=== PATIENT | male | born 1955 | race Caucasian/White ===

== ENCOUNTER 2024-03-20 02:14 | Inpatient (IN) | payer BC, MEDICARE, SELFPAY ==
[2024-03-19 19:11] VITALS: BP 151/77
--- NOTE | 2024-03-19 19:22 | ED.GENMED ---
ED Provider Triage
<Obinna Arevalo Jr., PA-C - Last Filed: 03/19/24 19:22>
-
Patient seen by provider in Triage?: Seen in Triage
Attestation: A medical screening examination has been initiated by a qualified medical provider. Based on the assessment performed at this time, it has been determined that an emergent medical condition may exist and the patient has been informed
that further medical evaluation and possible additional diagnostic testing may be needed.
HPI: 68-year-old male presenting to the emergency department with right lower quad abdominal pain over the past 2 days gradually worsening with associated nausea. Reproducible tenderness to the right lower quadrant. Concern for potential
appendicitis. CT scan ordered for further assessment.
GENERAL: Alert , in no apparent distress
EYE: No visual abnormalities.
NECK: Trachea midline
ENT: No visible abnormalities.
LUNGS: No acute respiratory distress
NEUROLOGICAL: Alert and oriented
SKIN: Skin intact. No visible changes.
MUSCULOSKELETAL: Moving extremities normally
PSYCH: Normal and appropriate interaction.
This is a medical evaluation conducted in person to initiate diagnostic evaluation and provide initial therapeutics. Please see further documentation by the treating clinician.
History of Present Illness
<Obinna Arevalo Jr., PA-C - Last Filed: 03/19/24 19:22>
General
Chief Complaint: Abdominal Pain
Time Seen by Provider: 03/19/24 22:45
<LIBIA Varma - Last Filed: 03/19/24 23:41>
General
Source: patient
Exam Limitations: none
History of Present Illness
History of Present Illness:
This is a 68 year old male that comes in with c/o right lower abd pain. States that this started 2 days ago. States that he was nauseated today and has had a headache on and off. Denies any fever, chills, chest pain, SOB, vomiting, diarrhea,
dizziness, urinary burning.
Past History
<Obinna Arevalo Jr., PA-C - Last Filed: 03/19/24 19:22>
Past History
ED Past Medical History: None
ED Past Surgical History: None
Social History
Tobacco: Non-smoker
Alcohol: None
Drug: None
Personal:
Living: with family
<LIBIA Varma - Last Filed: 03/19/24 23:41>
Past History
ED Past Medical History: CAD, Cancer (Bladder cancer), HTN and NIDDM
ED Past Surgical History: Cardiac (Stent), Orthopedic (Right Meniscus repair) and Urological (Tumor removed from bladder)
Social History
Tobacco: Former smoker
Alcohol: Occasional
Review of Systems
<LIBIA Varma - Last Filed: 03/19/24 23:41>
Review of Systems
All Other Systems: ROS reviewed and negative except as documented in HPI and ROS
Constitutional: Reports no symptoms; Denies fever or chills
EENT: Reports no symptoms
Respiratory: Reports no symptoms; Denies cough or trouble breathing
Cardiac: Reports no symptoms; Denies chest pain
ABD/GI: Reports abdominal pain and nausea; Denies vomiting or diarrhea
: Reports no symptoms; Denies dysuria, frequency or urgency
Musculoskeletal: Reports no symptoms
Skin: Reports no symptoms
Neurological: Reports headache (on and off); Denies dizzy
Psychiatric: Reports no symptoms
Phy Exam
<LIBIA Varma - Last Filed: 03/19/24 23:41>
General Physical Exam
General Presentation: no apparent distress
General age: appears stated age
General Skin: warm and dry
General Habitus: elderly
General Mental: alert
General Hydration: appears well hydrated
ENT Exam
ENT Exam: TM's normal, pharynx normal and neck supple
Eye Exam
Eye Exam: EOMI
Cardiovascular Exam
Cardiovascular Exam: regular rate/rhythm, no edema and normal peripheral pulses
Pulmonary Exam
Pulmonary Exam: lungs clear, no respiratory distress, no rales, chest non tender, no crackles, no rhonchi, no wheezing and no cough
Gastrointestinal Exam
Gastrointestinal Exam: normal bowel sounds, soft, no organomegaly, no pulsatile mass, non distended and tender (Right sided abd tenderness with palpation)
Musculoskeletal Exam
Musculoskeletal Exam: full ROM and no edema
Skin Exam
Skin Exam: normal color, warm/dry, no rash and no petechia
Psychiatric Exam
Psychiatric Exam: normal mood/affect
Course
<Obinna Arevalo Jr., PA-C - Last Filed: 03/19/24 19:22>
Orders/Labs/Results
Orders:
Orders
03/19/24 19:21
CT Abd/Pel (IV only)-DH only Urgent
Comment:
Reason For Exam: rlq pain
03/19/24 19:22
Ketorolac [Toradol] 15 mg IV NOW STA
Ondansetron Injectable [Zofran] 4 mg IV NOW STA
03/19/24 19:27
Complete Blood Count/With Diff Urgent
Comprehensive Metabolic Panel Urgent
Lipase Urgent
03/19/24 23:28
Piperacillin/Tazo 3.375 Gram [Zosyn] 3.375 gram in 50 ml IV NOW
Abnormal Lab Results
03/19/24
19:27
WBC 12.5 H 10^3/uL
(4.8-10.8)
MCH 26.9 L pg
(27.0-31.0)
MPV 11.1 H fL
(7.4-10.4)
Abs Immat Gran (auto) 0.1 H 10^3/uL
(0-0.05)
Absolute Neuts (auto) 9.3 H 10^3/uL
(1.4-6.5)
Absolute Monos (auto) 1.1 H 10^3/uL
(0.1-0.6)
Lymphocytes % 15.0 L %
(20.5-51.1)
Chloride 96 L mmol/L
(98-107)
Creatinine 1.5 H mg/dL
(0.7-1.3)
Glucose 144 H mg/dl
(70-99)
03/19/24 19:27
03/19/24 19:27
Vital Signs
Initial and Last Documented VS:
Initial Vital Signs
Temp Pulse Resp BP Pulse Ox
98.6 F 84 16 151/77 98
03/19/24 19:11 03/19/24 19:11 03/19/24 19:11 03/19/24 19:11 03/19/24 19:11
Last Documented Vital Signs
Temp Pulse Resp BP Pulse Ox
98.6 F 84 16 121/68 96
03/19/24 19:11 03/19/24 19:11 03/19/24 19:11 03/19/24 23:00 03/19/24 23:15
<LIBIA Varma - Last Filed: 03/19/24 23:41>
Orders/Labs/Results
Orders:
Orders
03/19/24 19:21
CT Abd/Pel (IV only)-[facility] only Urgent
Comment:
Reason For Exam: rlq pain
03/19/24 19:22
Ketorolac [Toradol] 15 mg IV NOW STA
Ondansetron Injectable [Zofran] 4 mg IV NOW STA
03/19/24 19:27
Complete Blood Count/With Diff Urgent
Comprehensive Metabolic Panel Urgent
Lipase Urgent
03/19/24 23:28
Piperacillin/Tazo 3.375 Gram [Zosyn] 3.375 gram in 50 ml IV NOW
Abnormal Lab Results
03/19/24
19:27
WBC 12.5 H 10^3/uL
(4.8-10.8)
MCH 26.9 L pg
(27.0-31.0)
MPV 11.1 H fL
(7.4-10.4)
Abs Immat Gran (auto) 0.1 H 10^3/uL
(0-0.05)
Absolute Neuts (auto) 9.3 H 10^3/uL
(1.4-6.5)
Absolute Monos (auto) 1.1 H 10^3/uL
(0.1-0.6)
Lymphocytes % 15.0 L %
(20.5-51.1)
Chloride 96 L mmol/L
(98-107)
Creatinine 1.5 H mg/dL
(0.7-1.3)
Glucose 144 H mg/dl
(70-99)
03/19/24 19:27
03/19/24 19:27
Leukocytosis, Chloride slightly low. Cr elevated. Hyperglycemia. Lipase normal at 230
Vital Signs
Initial and Last Documented VS:
Initial Vital Signs
Temp Pulse Resp BP Pulse Ox
98.6 F 84 16 151/77 98
03/19/24 19:11 03/19/24 19:11 03/19/24 19:11 03/19/24 19:11 03/19/24 19:11
Last Documented Vital Signs
Temp Pulse Resp BP Pulse Ox
98.6 F 84 16 121/68 96
03/19/24 19:11 03/19/24 19:11 03/19/24 19:11 03/19/24 23:00 03/19/24 23:15
Deepaklt;LIBIA Varma - Last Filed: 03/19/24 23:41>
MDM/Problems Addressed
Differential Diagnosis Includes:
Appendicitis, Renal calculus
MDM/Problems Addressed:
This is a 68 year old male that comes in with c/o right lower abd pain. States that this started 2 days ago.
Will check labs and get CT scan.
Into see patient. Explained that he has an appendicitis. Will notify surgery to see if they will take patient or have patient go to hospitalist with them on Consult. Await his response.
Dr. Remy would like the hospitalist to admit. Hospitalist notified.
Chronic conditions affecting care: DM, CAD and Cancer
Acute Exacerbation and/or Progression of Chronic Illness:
NA
<LIBIA Varma - Last Filed: 03/19/24 23:41>
*Radiology
Radiology exam reviewed: radiology read reviewed (CT- There is a dilated appendix with surrounding inflammatory changes consistent with acute appendicitis. There is a 7mm hyperdensity in the distal appendix, possible appendicolith. Colonic
diverticulosis. )
*Pulse Oximetry
Patient hypoxic: no
*EKG
Interpreted by ED Provider?: NA
Rate: EKG- N/A
*Architectural Engineering Teacher Interpretation
Rate: Architectural Engineering Teacher- N/A
*Critical Care Note
Total Time (30-74mins, 75-104mins- exclusive of procedures): Not Applicable
ED Attending Note
<Obinna Arevalo Jr., PA-C - Last Filed: 03/19/24 19:22>
-
Portions of this chart may have been created with voice recognition software.� Occasional wrong word or��sound alike� substitutions may have occurred due to the inherent limitations of voice recognition software.
Discharge Plan
Departure
Patient Disposition: Admit
Date of Disposition: 03/19/24
Time of Disposition: 23:40
Admit to: Med/Surg
Presentation/result/management discussed w/ accepting MD/DO: Hospitalist
Patient with high blood pressure during this ER visit?: No
Covid-19: Not Applicable
Discharge Problem:
Acute appendicitis
Referrals:
Harleen Avila MD [Family Provider] -
Interventions
Interventions:
*Risk Screen - Suicide Last Done: 03/19/24 23:20
*General Assessment Last Done: 03/19/24 23:19
*Neglect/Abuse Screening Last Done: 03/19/24 23:20
ED- Fall Risk Assessment Last Done: 03/19/24 23:22
*ED COVID-19 Vaccine History Last Done: 03/19/24 23:21
PZ-Kbqcmx-Uifahhuhvz Assessment Last Done: 03/19/24 22:41
Discharge Date and Time
Print Language: SWEDISH
[2024-03-19] MEDS: ZOFRAN 4 MG IV (19:30)
[2024-03-19] MEDS: TORADOL 15 MG IV (19:30)
[2024-03-19 19:32] LABS: % Basophils 0.2 % (0-2); % Immature Granulocytes 0.5 % (0-0.5); % Neutrophils 74.3 % (42.2-75.2); Absolute Eosinophils 0.1 10^3/uL (0-0.7); Absolute Immature Granulocytes 0.1 10^3/uL (0-0.05); Absolute Lymphocytes 1.9 10^3/uL (1.2-3.4); Absolute Monocytes 1.1 10^3/uL (0.1-0.6); Absolute Neutrophils 9.3 10^3/uL (1.4-6.5); Hematocrit 40.4 % (39.0-52.0); Hemoglobin 13.6 g/dL (13.0-18.0); Mean Corp Hgb Conc. 33.7 g/dL (33.0-37.0); Mean Corpuscular Hgb 26.9 pg (27.0-31.0); Mean Platelet Volume 11.1 fL (7.4-10.4); Nucleated Red Blood Cells % 0 % (-); Platelet Count 198 10^3/uL (130-400); Red Blood Cell Count 5.05 10^6/uL (4.70-6.10); Red Cell Dist. Width 14.1 % (11.5-14.5); White Blood Cell Count 12.5 10^3/uL (4.8-10.8)
[2024-03-19 19:50] LABS: ALT (SGPT) 18 U/L (0-50); AST (SGOT) 18 U/L (17-59); Albumin 4.6 g/dl (3.5-5.0); Alkaline Phosphatase 53 U/L (38-126); Blood Urea Nitrogen 20 mg/dl (9-20); Calcium 9.7 mg/dl (8.4-10.2); Carbon Dioxide 29 mmol/L (22-30); Chloride 96 mmol/L (98-107); Glucose 144 mg/dl (70-99); Lipase 230 U/L (23-300); Potassium 4.1 mmol/L (3.5-5.1); Sodium 135 mmol/L (135-145); Total Bilirubin 0.5 mg/dl (0.2-1.3); Total Protein 7.3 g/dl (6.3-8.2); eGFR 49.77
[2024-03-19 22:40] VITALS: BP 109/86
[2024-03-19 23:00] VITALS: BP 121/68
[2024-03-19] MEDS: ZOSYN 50 IV (23:47)
[2024-03-20] VITALS (18 sets, daily range): BP systolic 105–138; BP diastolic 61–72; BMI 36.0
--- NOTE | 2024-03-20 01:21 | HPS.HSE ---
Family Physician
-
Family Physician: Harleen Avila
Chief Complaint
-
Abd Pain
History of Present Illness
Patient is a 68y M with PMH significant for ASCVD and DM-II who presents to ED complaining of right-sided abdominal pain. Patient states that he first noted R sided abdominal pain 2 days ago. Pain has steadily increased in severity since that
time. Today he felt nauseated, but had no emesis. He presented to the ED for further evaluation and treatment. Patient denies and fevers / chills. No diarrhea or bloody stools.
Medical History
Past Medical History
Past Medical History: Reports Other
Additional Past Medical History:
ASCVD
Hypertension
DM-II
Obesity
Nephrolithiasis
Past Surgical History: Reports Other
Additional Past Surgical History:
PTCA with Stent x 4
T&A
Social History
Tobacco: Former Smoker (Quit smoking 50 years ago.)
Alcohol: Occasional
Drug: None
Family History
Family History: Not pertinent
Allergies / Home Medications
Allergies reflects when Allergies were last updated in [employer].
Home Medications with original date entered in [employer]
Allergy/Medication List:
Allergies
Allergy/AdvReac Type Severity Reaction Status Date / Time
No Known Allergies Allergy Verified 03/19/24 19:16
Home Medications
amlodipine 5 mg tablet 5 mg PO DAILY 03/19/24
aspirin 81 mg chewable tablet 81 mg PO DAILY 03/19/24
hydrochlorothiazide 12.5 mg tablet 12.5 mg PO DAILY 03/19/24
lisinopril 20 mg tablet 20 mg PO DAILY 03/19/24
metformin 500 mg tablet 500 mg PO BID 03/19/24
metoprolol succinate 50 mg tablet,extended release 24 hr 50 mg PO DAILY 03/19/24
nitroglycerin 0.4 mg sublingual tablet 0.4 mg sublingual [id number] PRN chest pain 03/19/24
rosuvastatin 40 mg tablet 40 mg PO DAILY 03/19/24
semaglutide 7 mg tablet (Rybelsus) 7 mg PO DAILY 03/19/24
Review of Systems
-
History Source: Patient
A 12 point ROS was completed and negative except as noted: Yes
Constitutional: Denies Fever or Chills
Respiratory: Denies Cough or Trouble Breathing
Cardiac: Denies Chest Pain or Palpitations
Abdomen/GI: Reports Abdominal Pain and Nausea; Denies Vomiting, Diarrhea or Bloody Stools
: Denies Dysuria or Frequency
Musculoskeletal: Denies Joint Pain or Edema
Neurological: Denies Dizzy or Headache
Physical Exam
Vital Signs
Vital Signs
Temp Pulse Resp BP Pulse Ox
98.6 F 84 16 121/68 96
03/19/24 19:11 03/19/24 19:11 03/19/24 19:11 03/19/24 23:00 03/19/24 23:15
Physical Exam
General: Other (68y M in no acute distress.)
HEENT: Moist mucous membranes, PERRLA and Other (Thick neck.)
Respiratory: Clear; No Wheezes, Rales or Rhonchi
Cardiac: S1/S2 and Regular Rhythm; No Murmur
GI: Soft, Non Distended, Normal Bowel Sounds and Other (Pos tenderness RLQ with guarding.)
Musculoskeletal: No Clubbing, No Cyanosis and No Edema
Neuro: AO x 3
Laboratory Results
-
03/19/24 19:27
03/19/24 19:27
Laboratory Results
Total Bilirubin 0.5 mg/dl (0.2-1.3) 03/19/24 19:27
AST 18 U/L (17-59) 03/19/24 19:27
ALT 18 U/L (0-50) 03/19/24 19:27
Alkaline Phosphatase 53 U/L (38-126) 03/19/24 19:27
Lipase 230 U/L (23-300) 03/19/24 19:27
Impression/Plan
-
A/P: Patient is a 68y M with PMH significant for ASCVD and DM-II who presents to ED complaining of abdominal pain.
Acute Appendicitis
- Admit for further evaluation and treatment.
- Continue IV abx for now.
- Consult Surgery for definitive treatment.
ASCVD
- Stable. No current chest pain / dyspnea / etc.
- Continue ASA uninterrupted given presence of coronary stents.
- Continue metoprolol with holding parameters.
Benign Hypertension
- Stable. Continue metoprolol and amlodipine with holding parameters.
- Hold other BP meds acutely / jyoti-operatively.
DM-II
- Stable. Hold PO medications acutely.
- Follow glucose and cover with SSI as needed.
- Update A1C.
Obesity due to excess calories
- Affects all aspects of care.
- Encourage healthy diet and increased exercise with goal of weight loss.
DVT Prophylaxis: SCDs
Code Status: Full
[2024-03-20] MEDS: LR 1000 IV ×2 (02:44→17:10)
[2024-03-20] MEDS: DILAUDID 0.5 MG IV ×2 (02:44→19:35)
[2024-03-20] MEDS: ZOSYN 50 IV ×3 (06:07→17:57)
[2024-03-20 06:38] LABS: Hematocrit 36.4 % (39.0-52.0); Mean Corpuscular Hgb 27.1 pg (27.0-31.0); Mean Corpuscular Volume 82.4 fL (80.0-94.0); Mean Platelet Volume 10.5 fL (7.4-10.4); Platelet Count 148 10^3/uL (130-400); Red Blood Cell Count 4.42 10^6/uL (4.70-6.10); Red Cell Dist. Width 14.4 % (11.5-14.5); White Blood Cell Count 9.7 10^3/uL (4.8-10.8)
[2024-03-20 06:40] LABS: Blood Urea Nitrogen 27 mg/dl (9-20); Calcium 9.1 mg/dl (8.4-10.2); Carbon Dioxide 25 mmol/L (22-30); Chloride 98 mmol/L (98-107); Estimated Creatinine Clearance 48 ml/min; Glucose 139 mg/dl (70-99); Potassium 3.9 mmol/L (3.5-5.1); Sodium 136 mmol/L (135-145); eGFR 46.06
--- NOTE | 2024-03-20 07:55 | W.SUR.PREOP ---
Pre-Operative Surgical Note
-
I have examined this patient prior to the performance of the scheduled procedure.
The patient's condition is unchanged from the time of the current History and
Physical and the patient is able to undergo the scheduled procedure.
[2024-03-20] MEDS: NOVOLOG FLEXPEN-LOW RESISTANCE SC ×3 (08:38→17:41)
[2024-03-20] MEDS: LOW STRENGTH ASPIRIN 81 MG PO (08:47)
[2024-03-20] MEDS: CRESTOR 40 MG PO (08:47)
[2024-03-20] MEDS: NORVASC 5 MG PO (08:47)
[2024-03-20] MEDS: TOPROL XL 50 MG PO (08:47)
[2024-03-20] MEDS: PROTONIX IV 40 MG IV (08:48)
[2024-03-20 09:04] LABS: Glucose - Point of Care 136 mg/dl (70-99)
--- NOTE | 2024-03-20 10:07 | CON.GS ---
Addendum entered and electronically signed by Familia Remy MD 03/20/24 11:19:
I saw and examined the patient independently.
The Application Coordinator's note was reviewed and I agree with the note, assessment and plan except where noted below.
Comment: This is a 68-year-old male with history of CAD status post 4 stents on ASA 81, diabetes who presents with a 3-day history of right lower quadrant abdominal pain found to have acute appendicitis.
Will plan for a laparoscopic appendectomy in the OR today.
N.p.o., IV fluids, IV antibiotics
Risks/Benefits/Alternatives, expected postoperative course and possible complications (bleeding, infection, injury to surrounding structures, acute/chronic pain) discussed at length. Patient wishes to proceed with surgery. All questions answered.
Consent obtained.
I spent 60 minutes in total for the care of this patient today including direct patient care and counseling, reviewing labs, imaging, coordination of care, as well as documentation.
Original Note:
Consultation
-
Date/Time Consultation Requested: 03/19/24 7421
Requesting Provider: Osiel
Medical History
-
Chief Complaint: abdominal pain
History of Present Illness:
Mr. To is a 68 yo male with a h/o CAD s/p 4 stents on daily ASA, NIDDM and prior T&A who presents through the Ed with 3 days of abdominal pain localizing to the RLQ. His pain has steadily increased causing him to present for evaluation. He
denies fevers, chills, or diarrhea. He has had nausea but no vomiting. On exam, he is quite tender to the RLQ with light palpation.
Past Medical History
Past Medical History: CAD, HTN, Hypercholesterolemia, NIDDM and Other (nephrolithiasis, obesity)
Past Surgical History: Cardiac (stents x4) and Tonsilectomy
Social History
Tobacco: Former Smoker (quit >50 years ago)
Alcohol: Occasional
Drug: None
Living: With Family
Family History
Family History: Reviewed & Not Pertinent
Allergies / Home Medications
Allergy/AdvReac Type Severity Reaction Status Date / Time
No Known Allergies Allergy Verified 03/19/24 19:16
�Medication �Instructions �Recorded �Confirmed �Type
amlodipine 5 mg tablet 5 mg PO DAILY 03/19/24 03/19/24 History
aspirin 81 mg chewable tablet 81 mg PO DAILY 03/19/24 03/19/24 History
hydrochlorothiazide 12.5 mg tablet 12.5 mg PO DAILY 03/19/24 03/19/24 History
lisinopril 20 mg tablet 20 mg PO DAILY 03/19/24 03/19/24 History
metformin 500 mg tablet 500 mg PO BID 03/19/24 03/19/24 History
metoprolol succinate 50 mg 50 mg PO DAILY 03/19/24 03/19/24 History
tablet,extended release 24 hr
nitroglycerin 0.4 mg sublingual 0.4 mg sublingual [id number] PRN 03/19/24 03/19/24 History
tablet chest pain
rosuvastatin 40 mg tablet 40 mg PO DAILY 03/19/24 03/19/24 History
semaglutide 7 mg tablet (Rybelsus) 7 mg PO DAILY 03/19/24 03/19/24 History
Review of Systems
-
History Source: Patient
All other systems: Negative unless noted
A 10 point review of systems was completed, and was negative except as per HPI.
Physical Exam
Vital Signs
Temp Pulse Resp BP Pulse Ox
98.4 F 71 14 113/65 99
03/20/24 08:10 03/20/24 08:47 03/20/24 08:10 03/20/24 08:47 03/20/24 08:10
03/19/24 03/20/24 03/21/24
06:59 06:59 06:59
Actual Weight 101.1 kg
Body Mass Index (BMI) 36.0
Lab Results
03/20/24 06:12
03/20/24 06:12
WBC 9.7 10^3/uL (4.8-10.8) 03/20/24 06:12
Hgb 12.0 g/dL (13.0-18.0) L 03/20/24 06:12
Hct 36.4 % (39.0-52.0) L 03/20/24 06:12
Plt Count 148 10^3/uL (130-400) D 03/20/24 06:12
Abs Immat Gran (auto) 0.1 10^3/uL (0-0.05) H 03/19/24 19:27
Neutrophils % 74.3 % (42.2-75.2) 03/19/24 19:27
Physical Exam
General: Well Developed and Well Nourished
HEENT: Moist Mucous Membranes
GI: Soft, Non Distended, Tender (RLQ) and Obese
Skin: Warm and Dry
Neuro: Awake, Alert and AO x 3
Psych: Calm
Assessment / Plan
-
68 yo male with h/o CAD, HTN and NIDDM presenting with RLQ pain x3 days with tenderness on exam. CT imaging and exam consistent with acute appendicitis with appendicolith. Leukocytosis present on admission but now resolved with ABX. Cr elevated,
medicine following on IVF. Afebrile with stable vital signs.
Would recommend surgical intervention with laparoscopic appendectomy, patient agreeable to proceed
--NPO for OR later today
--Continue Iv Zosyn
--IVF as per primary team
--Analgesics/antiemetics prn
--- NOTE | 2024-03-20 10:23 | PTCARENOTE ---
pt aox3. states 2/10 pain in lower right abd. does not want pain med. room air breath sounds clear. ivf running as ordered.
[2024-03-20 12:14] LABS: Glucose - Point of Care 119 mg/dl (70-99)
[2024-03-20 14:27] LABS: Glucose - Point of Care 156 mg/dl (70-99)
--- NOTE | 2024-03-20 15:03 | W.IMMPOSTOP ---
Surgical Immed Post Op Note
-
Primary Surgeon: Familia Remy MD
Assisting Surgeon: None
Pre-op Diagnosis: Acute appendicitis
Post-op Diagnosis: Same
Procedure Performed: Laparoscopic appendectomy
Anesthesia Type: General
Specimen / Cultures: Appendix
Estimated Blood Loss: 11 cc
Complications: None
Operative Findings: Three 5 mm port appendectomy. Veress needle entry. Base of the appendix was plastered into the sidewall of the cecum and mesentery but thin and uninvolved. This was ligated with 0 PDS Endoloop followed by a 0 silk tie. The
base of the mesentery that was bleeding was cauterized with the LigaSure. Floseal was also used to assist with hemostasis.
POST OP PLAN:
Imaging: None
Labs: Routine AM
Diet: Advance to Regular as tolerated
Analgesia: Tylenol 650mg q6 Bernardo, Yaneli 5mg q6 PRN, Dilaudid 0.5mg q2h PRN
Neuro/vascular checks: q4h
AC/AP: Hold Therapeutic AC, Ok for DVT PPx
Activity: Ad Melanie
Wound/Incisions/Drains: Routine
Abx: can continue while admitted
Dispo: RNF, anticipate discharge home tomorrow
[2024-03-20] MEDS: DILAUDID 0.25 MG IV (15:21)
--- NOTE | 2024-03-20 16:17 | OR.RPT ---
Operative Report
Operative Report
Patient Name: Walt To
: 1955
Date of Operation: 03/20/2024
Preoperative Diagnosis: Acute Appendicitis
Postoperative Diagnosis: Same
Procedure(s):
Laparoscopic Appendectomy
Surgeon(s):
Dr. Remy
[place]way Man(s):
None
Anesthesia: General
Estimated Blood Loss: 11 cc
Urine Output: None
Drains/Lines/Implants: None
Specimens:
1. Appendix
HPI/Surgical Indications:
This is a 68-year-old male who presents with a 3 day history of abdominal pain. Exam, labs and imaging are consistent with acute appendicitis. Risks/Benefits/Alternatives were discussed at length, and the patient agreed to proceed with surgery.
Operative Findings: Three 5 mm port appendectomy. Veress needle entry. Base of the appendix was plastered into the sidewall of the cecum and mesentery but thin and uninvolved. Inflamed but not perforated. This was ligated with 0 PDS Endoloop
followed by a 0 silk tie. The base of the mesentery that was bleeding was cauterized with the LigaSure. Floseal was also used to assist with hemostasis.
Procedure Description:
The patient was placed in the supine position, with the left arm tucked, and general anesthesia was induced. The abdomen was prepared and draped in a sterile fashion so as to expose the entire abdomen. A surgical time out was taken. Abdominal access
was obtained with aleft subcostal Veress technique followed by a 5 mm left lower quadrant Optiview trocar entry. After confirming no injury on entrance, two additional 5mm ports were placed in the suprapubic area just off midline and in the right
upper quadrant. The patient was placed in Trendelenberg with the right slightly up . The appendix was identified and a window was created in the mesoappendix. The appendix was suppurative and inflamed but not perforated. The base of the appendix
appeared plastered over the cecum and had to be carefully dissected off. Using a laparoscopic bipolar energy device, the meso appendix was divided. There was some bleeding from the mesentery in this area which we cauterized using the laparoscopic
bipolar device. The true base of the appendix appeared uninvolved and was ligated/divided using a 0-PDS Endoloops, followed by an 0 silk tie (we were out of additional Endoloops) followed by the energy device. The appendix was placed in a specimen
retrieval bag. There is still a little bit of oozing at the base of the mesentery so Floseal was used. Hemostasis was confirmed and the ports were removed under visualization. The specimen was passed off the field. The GONZÁLEZ-umbilical port was
closed with a [id number] 0-PDS and the skin for all three ports was closed with interrupted monocryls and covered with dermabond. The patient was awoken from anesthesia in good condition and transported to the recovery area.
I was the attending physician and performed the procedure with no assistance. I was present for all portions of the case excluding skin closure.
Familia Remy MD
[2024-03-20] MEDS: TYLENOL 650 MG PO (17:10)
[2024-03-20 17:31] LABS: Glucose - Point of Care 143 mg/dl (70-99)
[2024-03-20 21:51] LABS: Glucose - Point of Care 225 mg/dl (70-99)
[2024-03-21] MEDS: ZOSYN 50 IV ×2 (01:06→06:25)
[2024-03-21 03:00] VITALS: BP 132/71
[2024-03-21] MEDS: LR 1000 IV (03:44)
[2024-03-21] MEDS: DILAUDID 0.5 MG IV (03:47)
[2024-03-21 07:07] VITALS: BP 132/75
[2024-03-21 07:25] LABS: Hematocrit 35.1 % (39.0-52.0); Mean Corp Hgb Conc. 34.2 g/dL (33.0-37.0); Mean Corpuscular Hgb 27.1 pg (27.0-31.0); Mean Corpuscular Volume 79.2 fL (80.0-94.0); Mean Platelet Volume 11.4 fL (7.4-10.4); Platelet Count 187 10^3/uL (130-400); Red Blood Cell Count 4.43 10^6/uL (4.70-6.10); Red Cell Dist. Width 13.8 % (11.5-14.5); White Blood Cell Count 9.3 10^3/uL (4.8-10.8)
--- NOTE | 2024-03-21 07:37 | W.PN.HOSP.TC ---
Addendum entered and electronically signed by Jin Sellers MD 03/21/24 11:57:
Total time spent on d/c = 31 min. This included today's physical exam, progress note, review of laboratory and diagnostic data, preparation of discharge documents and prescriptions, and discussions about the pt's hospital course and discharge plan
with the patient and other certified medical transcriptionist involved in the patient's care.
Original Note:
Today's Communication/Plan
-
d/c
Assessment / Plan
Assessment / Plan
Gen: NAD, AAOx3.
Eyes: EOMI, PERRLA, no scleral icterus.
Neck: supple.
CV: RRR, +S1/S2, no m/r/g.
Resp: CTAB, no rales, wheezes, or rhonchi.
Abd: +BS, soft, mild RLQ TTP, ND
Skin: No rashes.
Neuro: CN 2-12 intact, non-focal.
Psych: Normal mood and affect.
CT A/P: Dilated appendix with surrounding inflammatory changes consistent with acute appendicitis. There is a 7 mm hyperdensity in the distal appendix, possible appendicolith. Colonic diverticulosis.
Acute appendicitis:
-Status post laparoscopic appendectomy on 03/20/24
-management as per surgery
-currently on Zosyn, likely does not need abx on d/c
Other problems:
CAD: cont ASA/BB/statin
Essential hypertension: Cont BB/Norvasc
DM2: a1c 7.0%, SSI/accuchecks
Obesity due to excess calories
CKD3a (suspected, baseline Cr unknown)
FULL/SCDs
Medically cleared for d/c if OK with surgery.
Anticipated Discharge: Today
Subjective/Interval History
-
Date of Service: March 21, 2024
Mild abdominal pain. Tolerating diet. No other acute complaints.
Objective Data
-
Labs:
Laboratory Results
03/21/24
06:45
WBC 9.3
Hgb 12.0 L
Hct 35.1 L
Plt Count 187 D
Sodium Pending
Potassium Pending
Chloride Pending
Carbon Dioxide Pending
BUN Pending
Creatinine Pending
Glucose Pending
Calcium Pending
Vital Signs:
Vital Signs
Temp Pulse Resp BP Pulse Ox
98.6 F 86 18 132/71 94
03/21/24 03:00 03/21/24 03:00 03/21/24 03:00 03/21/24 03:00 03/21/24 03:00
I&O
03/20/24 03/21/24 03/22/24
06:59 06:59 06:59
Intake Total 2250 / 2250
Output Total 1350 / 1350
Balance 900 / 900
[2024-03-21 07:48] LABS: Glucose - Point of Care 183 mg/dl (70-99)
[2024-03-21 07:50] LABS: Blood Urea Nitrogen 23 mg/dl (9-20); Carbon Dioxide 24 mmol/L (22-30); Chloride 99 mmol/L (98-107); Estimated Creatinine Clearance 51 ml/min; Glucose 188 mg/dl (70-99); Sodium 136 mmol/L (135-145); eGFR 49.77
[2024-03-21] MEDS: CRESTOR 40 MG PO (07:51)
[2024-03-21] MEDS: NORVASC 5 MG PO (07:51)
[2024-03-21] MEDS: TOPROL XL 50 MG PO (07:51)
[2024-03-21] MEDS: PROTONIX IV 40 MG IV (07:51)
[2024-03-21] MEDS: LOW STRENGTH ASPIRIN 81 MG PO (07:51)
[2024-03-21] MEDS: TYLENOL 650 MG PO (08:03)
[2024-03-21] MEDS: NOVOLOG FLEXPEN-LOW RESISTANCE 1 UNITS SC (09:23)
--- NOTE | 2024-03-21 10:10 | PTCARENOTE ---
pt aaox3. states 07/31 abd pain. tylenol given. three inc site on abd c/d/i. 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 ivf running as ordered. pt oob to bathroom.
--- NOTE | 2024-03-21 10:11 | CM ---
CM reviewed medical records. Plan for discharge today. No needs noted at this time. CM will continue to follow as needed.
PLAN: home no needs.
--- NOTE | 2024-03-21 10:57 | W.PN.GS2 ---
Today's Communication / Plan
-
Dispo planning
Assessment / Plan
-
68 yo male presenting with acute appendicitis now POD #1 lap appi
H/H stable
Labs stable
AFVSS
Doing well post operatively and following expected course
--Continue diet as tolerated
--Analgesics prn
--Ok for discharge from surgical standpoint
Subjective Data
-
Date of Service: March 21, 2024
Patient seen and examined at bedside with Dr. Philip. Rico n/v. Tolerating diet. Incisional pain is minimal. Passing flatus.
Objective Data
-
Intake and Output
03/20/24 03/21/24 03/22/24
06:59 06:59 06:59
Intake Total 2250 / 2250
Output Total 1350 / 1350
Balance 900 / 900
Intake:
IV fluids (Total) 2049 / 2049
normosol 150 / 150
IV piggybacks 200 / 200
Output:
Urine, Voided 1350 / 1350
Other:
Number of approximated MODERATE 1
amounts of urine
Vital Signs
Temp Pulse Resp BP Pulse Ox
98.0 F 79 16 132/75 96
03/21/24 07:07 03/21/24 07:51 03/21/24 07:07 03/21/24 07:51 03/21/24 07:07
Lab Results
03/21/24 06:45
03/21/24 06:45
Calcium 9.0 mg/dl (8.4-10.2) 03/21/24 06:45
Total Bilirubin 0.5 mg/dl (0.2-1.3) 03/19/24 19:27
AST 18 U/L (17-59) 03/19/24 19:27
ALT 18 U/L (0-50) 03/19/24 19:27
Alkaline Phosphatase 53 U/L (38-126) 03/19/24 19:
Total Protein 7.3 g/dl (6.3-8.2) 03/19/24 19:
Albumin 4.6 g/dl (3.5-5.0) 03/19/24 19:
Physical Exam
-
NAD
ABD soft, incisional tenderness, nd
[2024-03-21 11:32] VITALS: BP 146/74
[2024-03-21 12:10] LABS: Glucose - Point of Care 193 mg/dl (70-99)
--- NOTE | 2024-03-21 14:05 | W.DCSUMMARY ---
Discharge Summary
Discharge Data
Date of Admission: 03/20/24
Date of Discharge: 03/21/24
-
Pending Results: No
Hospital Course
Primary diagnoses:
Appendicitis status post laparoscopic appendectomy
Secondary diagnoses:
Coronary artery disease
Essential hypertension
Type 2 diabetes mellitus
Obesity due to excess calories
Chronic kidney disease 3a (suspected, baseline Cr unknown)
Consults:
General Surgery
Imaging:
CT A/P: Dilated appendix with surrounding inflammatory changes consistent with acute appendicitis. There is a 7 mm hyperdensity in the distal appendix, possible appendicolith. Colonic diverticulosis.
Hospital course: 68-year-old male was admitted yesterday with a chief complaint of abdominal pain as outlined in the H&P done on admission. He was found of acute appendicitis. He underwent laparoscopic appendectomy on 03/20/24 and tolerated the
procedure well. He was on Zosyn before surgery and did not require antibiotics on discharge as per discussion with general surgery. He was discharged in medically stable condition
Discharge Plan
-
Patient Disposition: Home (Routine Discharge)
Discharge Diagnosis/Procedures: Appendicitis status post laparoscopic appendectomy
Condition: Good
Diet: As tolerated, Low Cholesterol, Low Sodium and Diabetic, Carb Controlled
Activity: No strenuous activity
Driving Restrictions: Not until seen by your Dr
Bathing Restrictions: OK to Shower
Blood Work: BMP and CBC in 1 week, prescription from PCP
Activity Restrictions/Additional Instructions:
Instructions following Laparoscopic appendectomy
Please call [phone] if you have any questions or concerns after your surgery.
Wound Care:
Your incisions are covered with skin glue which will come off on its own in 5-10 days.
It is ok to shower the day after your surgery. Do not scrub the incisions, let soap and water wash over them and pat dry.
� Bruising around your incisions is normal.
� Using ice packs will help minimize this swelling.
� No swimming or soaking incisions for 1 week.
� Your stitches will dissolve and do not need to be removed.
Urinary retention:
If you are unable to urinate 6-8 hours after your surgery, please call [phone] to discuss further management.
Activity:
No heavy lifting more than 15 pounds for the next 3 weeks, then you may gradually lift heavier objects as tolerated by discomfort. Otherwise activity as tolerated by your comfort level.
Pain Management:
Use Tylenol, ibuprofen and ice packs to treat your pain.
� You may take 650 milligrams of Tylenol (Max 3 grams per day) every 6 hours, and 600 mg of ibuprofen also every 6 hours. (you can alternate them every 3 hours)
� You may use an ice pack to your incision as needed.
� If you still have pain not controlled by these measures, take your prescription pain medication if prescribed.
Medications:
You may resume your home medications.
Bowel Medications:
Prescription pain medication can make you constipated. If you take this medication, also take colace 100 mg twice daily (this is over the counter). If this is not sufficient, you may take Miralax (polyethylene glycol) to help move your bowels.
Diet:
After your procedure, there are no dietary restrictions.
Driving restrictions:
No driving if you are taking prescription pain medication or if you think your normal reaction time and attentiveness has been slowed by your surgery.
Things to Look out for:
Worsening Abdominal pain, redness or drainage from incision
Call Doctor for:
Please call if you notice worsening redness or drainage from incision(s) lasting longer than 5 days after your surgery, any foul-smelling drainage from the incision, pain not controlled by pain medications, persistent nausea and vomiting, or for any
fevers greater than 101.3 F. The number for questions/concerns is [phone]
Follow-up:
A follow-up appointment will be scheduled with your surgeon in 3-4 weeks. Please call prior to your appointment if you have any questions or concerns. [phone]
Referrals:
Harleen Avila MD [Family Provider] - in less than 1 week
Familia Remy MD [Active] - in two to four weeks
Prescriptions:
New
oxycodone 5 mg tablet
5 mg PO Q4HPRN PRN (Reason: breakthrough/severe pain) Qty: 10 0RF
Continued
metformin 500 mg Tablet
500 mg PO BID
metoprolol succinate 50 mg Tablet Extended Release 24 Hr
50 mg PO DAILY
lisinopril 20 mg Tablet
20 mg PO DAILY
amlodipine 5 mg Tablet
5 mg PO DAILY
nitroglycerin 0.4 mg Tablet, Sublingual
0.4 mg SUBLINGUAL [id number] PRN (Reason: chest pain)
aspirin 81 mg Tablet,Chewable
81 mg PO DAILY
rosuvastatin 40 mg Tablet
40 mg PO DAILY
hydrochlorothiazide 12.5 mg Tablet
12.5 mg PO DAILY
Rybelsus 7 mg Tablet
7 mg PO DAILY
Discharge Orders:
Discharge Patient (As Directed); Ordered 03/21/24
Ordered By: Jin Sellers
Discharge Date and Time
Discharge Date/Time: 03/21/24 12:28
Print Language: KAZAKH
== END 2024-03-21 12:28 | disposition home or self-care (01) | DRG 399 ==
LOC: 1 ACUTE 02:14
PROVIDERS: Emergency Medicine; Registered Nurse; ADMITTING PHYSICIAN Hospitalist; ATTENDING PHYSICIAN Internal Medicine; CONSULT PHYSICIAN Surgery; EMERGENCY PHYSICIAN Student in an Organized Health Care Education/Training Program; FAMILY PHYSICIAN Internal Medicine
PROC: 0DTJ4ZZ Resection of Appendix, Percutaneous Endoscopic Approach (ICD-10-PCS; 2024-03-20)
DX: K35.80 Unspecified acute appendicitis (principal); K38.1 Appendicular concretions; N18.31 Chronic kidney disease, stage 3a; E11.22 Type 2 diabetes mellitus with diabetic chronic kidney disease; I12.9 Hypertensive chronic kidney disease with stage 1 through stage 4 chronic kidney disease, or unspecified chronic kidney disease; I25.10 Atherosclerotic heart disease of native coronary artery without angina pectoris; N20.0 Calculus of kidney; E78.00 Pure hypercholesterolemia, unspecified; K57.30 Diverticulosis of large intestine without perforation or abscess without bleeding; E66.09 Other obesity due to excess calories; E11.65 Type 2 diabetes mellitus with hyperglycemia; Z87.891 Personal history of nicotine dependence; Z95.5 Presence of coronary angioplasty implant and graft; Z85.51 Personal history of malignant neoplasm of bladder; Z68.36 Body mass index [BMI] 36.0-36.9, adult; Z79.82 Long term (current) use of aspirin; Z79.84 Long term (current) use of oral hypoglycemic drugs
CPT/HCPCS: 88304; 74177; 80048; 80053; 82962; 83036; 83690; 85025; 85027; 96365; 96375; 99284; C1776; Q9967